=== PATIENT | female | born 1990 | race Caucasian/White ===

== ENCOUNTER 2018-01-14 20:27 | Emergency (ER) | payer SELFPAY ==
[2018-01-14] MEDS ORDERED: MORPHINE SULFATE 10 MG/ML INJ IV ONE (21:43)
[2018-01-14] MEDS ORDERED: NORMAL SALINE 1000 ML 1,000 ML IV ONE (21:44)
[2018-01-14] MEDS ORDERED: ACETAMINOPHEN 325 MG TABLET PO ONE (21:44)
[2018-01-14] MEDS ORDERED: ONDANSETRON HCL INJ/PF 4 MG/2 ML SDV IV ONE (21:44)
--- NOTE | 2018-01-14 21:46 | ER Document Report ---
ED GI/ - General Chief Complaint: Abdominal Pain Stated Complaint: ABDOMINAL PAIN Time Seen by Provider: 01/14/18 21:39 Notes: Patient is a 27-year-old female who comes to the emergency department for chief complaint of generalized abdominal pain, flank pain on both sides, discomfort with urination, and fever. She states she has been worsening with abdominal cramping for the past couple of days and then slowly today became worse and so she became nauseated and felt like she was running a fever. She denies vomiting. She denies vaginal bleeding or discharge. She states this feels similar to previous urinary tract infections. She has had an appendectomy, denies any medications daily, denies medical history otherwise. She denies history of kidney stones. TRAVEL OUTSIDE OF THE [place] IN LAST 30 DAYS: No - Related Data Allergies/Adverse Reactions: No Known Allergies Allergy (Unverified 12/19/14 09:26) Past Medical History - General Information source: Patient - Social History Smoking Status: Current Every Day Smoker Smoking Education Provided: Yes - <3 min Frequency of alcohol use: Social Drug Abuse: None Lives with: Spouse/Significant other Family History: Reviewed & Not Pertinent - Medical History Medical History: Negative Past Surgical History: Reports: Hx Appendectomy - Immunizations Hx Diphtheria, Pertussis, Tetanus Vaccination: Yes Review of Systems - Review of Systems Constitutional: See HPI EENT: No symptoms reported Cardiovascular: No symptoms reported Respiratory: No symptoms reported Gastrointestinal: See HPI Genitourinary: See HPI Female Genitourinary: No symptoms reported Musculoskeletal: No symptoms reported Skin: No symptoms reported Hematologic/Lymphatic: No symptoms reported Neurological/Psychological: No symptoms reported Physical Exam - Vital signs Vitals: Temp Pulse Resp BP Pulse Ox 100.8 F H 113 H 20 122/67 98 01/14/18 20:30 01/14/18 20:30 01/14/18 20:30 01/14/18 20:30 01/14/18 20:30 - Notes Notes: GENERAL: Alert, interacts well. No acute distress. Slightly flushed and mildly ill-appearing. HEAD: Normocephalic, atraumatic. EYES: Pupils equal, round, and reactive to light. Extraocular movements intact. ENT: Oral mucosa moist, tongue midline. NECK: Full range of motion. Supple. Trachea midline. LUNGS: Clear to auscultation bilaterally, no wheezes, rales, or rhonchi. No respiratory distress. HEART: Regular rate and rhythm. No murmur ABDOMEN: Soft, non-tender. Non-distended. Bowel sounds present in all 4 quadrants. EXTREMITIES: Moves all 4 extremities spontaneously. No edema, normal radial and dorsalis pedis pulses bilaterally. No cyanosis. BACK: no cervical, thoracic, lumbar midline tenderness. No saddle anesthesia, normal distal neurovascular exam. Mild bilateral CVA tenderness. NEUROLOGICAL: Alert and oriented x3. Normal speech. [cranial nerves II through XII grossly intact]. PSYCH: Normal affect, normal mood. SKIN: Flushed, dry, normal turgor. No rashes or lesions noted. Course - Re-evaluation Re-evalutation: Patient initially with low-grade fever and tachycardia, no hypotension, she is mildly ill-appearing but not toxic in appearance. She has a very soft benign abdomen, she has mild bilateral CVA tenderness both reported and on exam. Gradually worsening symptoms. Suspect kidney infection. Based on presentation and exam I have lower suspicion of kidney stone. CBC shows leukocytosis with elevation of neutrophils but no bandemia. Chemistry unremarkable. Urinalysis consistent with infection, negative , positive yeast. Given Diflucan. Given Diflucan for treatment after antibiotics on patient request as well. Given Rocephin here, placed urine culture and blood cultures. On reevaluation patient alert, well-appearing, tachycardia resolved, no hypotension. Discussed workup, treatment home with antibiotics, follow-up, and return precautions in detail with patient and family. They state satisfaction and agreement. Stable at time of discharge. - Vital Signs Vital signs: Temp Pulse Resp BP Pulse Ox 99.0 F 94 16 103/55 L 97 01/15/18 00:10 01/15/18 00:10 01/15/18 00:10 01/15/18 00:10 01/15/18 00:10 - Laboratory Result Diagrams: 01/14/18 22:00 01/14/18 22:00 Laboratory results interpreted by me: 01/14/18 01/14/18 01/14/18 22:00 22:00 22:00 WBC 13.3 H Seg Neuts % (Manual) 86 H Lymphocytes % (Manual) 7 L Abs Neuts (Manual) 11.4 H Sodium 135.7 L Glucose 119 H Urine Ketones 20 H Ur Leukocyte Esterase MODERATE H Discharge - Discharge Clinical Impression: Dysuria, Flank pain Urinary tract infection Qualifiers: Urinary tract infection type: site unspecified Hematuria presence: without hematuria Qualified Code(s): N39.0 - Urinary tract infection, site not specified Fever Qualifiers: Fever type: unspecified Qualified Code(s): R50.9 - Fever, unspecified Condition: Stable Disposition: HOME, SELF-CARE Additional Instructions: Your evaluation and workup are most consistent with a kidney infection. Take Keflex antibiotics as prescribed to completion. Take nausea and pain medication if needed. Rest and drink plenty of fluids. Follow-up with primary care. We have blood cultures and urine cultures pending. Return if you worsen including spiking fever, vomiting, increased pain, or any other concerning or worsening symptoms. Prescriptions: Morphine Sulfate [Morphine Ir 15 Mg Tablet] 15 mg PO Q4HP PRN #8 tablet PRN Reason: Cephalexin Monohydrate [Keflex 500 mg Capsule] 500 mg PO BID #14 capsule Fluconazole [Diflucan] 150 mg PO ONCE PRN #1 tablet PRN Reason: Promethazine HCl [Phenergan 25 mg Tablet] 25 mg PO Q6H PRN #15 tablet PRN Reason: Forms: Return to Work
[2018-01-14 22:36] LABS: HEMATOCRIT 37.6 % (36.0-47.0); HEMOGLOBIN 12.9 g/dL (12.0-15.5); MEAN CORPUSCULAR HEMOGLOBIN 33.1 pg (27.0-33.4); MEAN CORPUSCULAR HGB CONC 34.3 g/dL (32.0-36.0); MEAN CORPUSCULAR VOLUME 97 fl (80-97); PLATELET COUNT 214 10^3/uL (150-450); RED BLOOD COUNT 3.89 10^6/uL (3.72-5.28); RED CELL DISTRIBUTION WIDTH 12.8 % (11.5-14.0); WHITE BLOOD COUNT 13.3 10^3/uL (4.0-10.5)
[2018-01-14 22:45] LABS: APPEARANCE,URINE SLIGHTLY-CLOUDY; BILIRUBIN,URINE NEGATIVE (NEGATIVE); COLOR,URINE YELLOW; GLUCOSE, URINE NEGATIVE (NEGATIVE); KETONES,URINE 20 mg/dL (NEGATIVE); LEUKOCYTE ESTERASE,URINE MODERATE (NEGATIVE); NITRITE,URINE NEGATIVE (NEGATIVE); PROTEIN,URINE NEGATIVE (NEGATIVE); URINE SPECIFIC GRAVITY 1.012; UROBILINOGEN,URINE NEGATIVE mg/dL (<2.0)
[2018-01-14] MEDS ORDERED: CEFTRIAXONE INJ 1000 MG VIAL IV ONE (22:49)
[2018-01-14 22:51] LABS: ALANINE AMINOTRANSFERASE 25 U/L (9-52); ALBUMIN 4.2 g/dL (3.5-5.0); ALKALINE PHOSPHATASE 89 U/L (38-126); ANION GAP 13 (5-19); ASPARTATE AMINO TRANSFERASE 16 U/L (14-36); BILIRUBIN,DIRECT 0.2 mg/dL (0.0-0.4); BILIRUBIN,TOTAL 0.4 mg/dL (0.2-1.3); BLOOD UREA NITROGEN 9 mg/dL (7-20); CALCIUM 9.5 mg/dL (8.4-10.2); CARBON DIOXIDE 23 mmol/L (22-30); CHLORIDE 100 mmol/L (98-107); GLUCOSE 119 mg/dL (75-110); SODIUM 135.7 mmol/L (137-145); TOTAL PROTEIN 6.8 g/dL (6.3-8.2)
[2018-01-14 23:07] LABS: ABSOLUTE LYMPHOCYTES# (MANUAL) 0.9 10^3/uL (0.5-4.7); ABSOLUTE MONOCYTES # (MANUAL) 0.9 10^3/uL (0.1-1.4); ABSOLUTE NEUTROPHILS# (MANUAL) 11.4 10^3/uL (1.7-8.2); BASOPHILS % (MANUAL) 0 % (0-2); EOSINOPHILS % (MANUAL) 0 % (0-6); LYMPHOCYTES % (MANUAL) 7 % (13-45); MONOCYTES % (MANUAL) 7 % (3-13); SEGMENTED NEUTROPHILS % (MAN) 86 % (42-78); TOTAL CELLS COUNTED 100
[2018-01-14 23:13] LABS: PLATELET COMMENT ADEQUATE; POIKILOCYTOSIS SLIGHT; TEAR DROP CELLS SLIGHT; TOXIC GRANULATION SLIGHT; TOXIC VACUOLATION PRESENT
[2018-01-14] MEDS ORDERED: FLUCONAZOLE 100 MG TABLET PO ONE (23:20)
[2018-01-14] MEDS ORDERED: ONDANSETRON ODT 4 MG TAB (6 TAB/ER DISP) PO PRN (23:28)
[2018-01-14] MEDS ORDERED: HYDROCODONE/ACETAMINOPHEN 5-325 MG (6 TAB/ER DISP) PO PRN (23:29)
[2018-01-15 00:40] VITALS: BP 103/55
== END 2018-01-15 00:15 | disposition home or self-care (01) ==
LOC: ER 20:27
DX: N39.0 Urinary tract infection, site not specified (principal); R10.84 Generalized abdominal pain; R00.0 Tachycardia, unspecified; F17.200 Nicotine dependence, unspecified, uncomplicated
CPT/HCPCS: 99284; 96361; 96375; 96365; 36415; 87040; 87086; 85025; 81025; 87088; 80053; 81001; 87186; J2270; J0696; J2405; J7030

== ENCOUNTER 2020-03-11 04:22 | Emergency (ER) | payer SELFPAY ==
[2020-03-11 04:39] VITALS: BP 127/76
== END 2020-03-11 06:00 | disposition left against medical advice (07) ==
LOC: ER 04:22
DX: Z53.21 Procedure and treatment not carried out due to patient leaving prior to being seen by health care provider (principal)